=== PATIENT | male | born 1990 | race Caucasian/White ===

== ENCOUNTER 2017-09-12 19:21 | Emergency (ER) | payer OTHER ==
[~2017-09-12] VITALS: Ht 167.6 cm; Wt 71.0 kg
--- NOTE | 2017-09-12 19:28 | ED.ADGEN ---
Past History Past Medical History: Other Smoking: Cigarettes Drug Use: Cocaine, Marijuana Adult General Chief Complaint Chief Complaint ".. Its my day... I did go to work... I work out side all day.. did a little blow.. and started drinking.beer . whiskey .. and red bull... .. then I started feeling... a little bad.. and started vomiting.. I am still not right.. .. I got chest tightness ".. " I did not eat anything bad... didnt eat anything at all really..." HPI HPI Patient is a 27 year old male who presents with above hx and complaints nausea and vomiting after snorting 1/2 gram cocaine and multiple drinks of alcohol. Pt. localizes chest discomfort to Lt side of chest no radiation. Abd. pain in more epigastric. Chest and Abd. discomfort is described as moderate. Pt. in obvious sinus tachycardia on monitor 160- 170s. Pt. Serge trauma, travel, specific ill contacts, or bad food. Has had tachycardia and chest pain in past with smoking marijuana. Pt. denies black stools but has had hemorrhoids. Pt. states his vomit was very dark, a red color. Review of Systems Review of Systems Constitutional: Denies fever or chills [] Eyes: Denies change in visual acuity, redness, or eye pain [] HENT: Denies nasal congestion or sore throat [] Respiratory: Complaints of shortness of breath [] Cardiovascular: No additional information not addressed in HPI [] GI: Complaints of abdominal pain, nausea, vomiting, . Pt. denies bloody stools or diarrhea [] : Denies dysuria or hematuria [] Musculoskeletal: Denies back pain or joint pain [] Integument: Denies rash or skin lesions [] Neurologic: Denies headache, focal weakness or sensory changes [] Endocrine: Denies polyuria or polydipsia [] All other systems were reviewed and found to be within normal limits, except as documented in this note. Family History Family History Non-contributory Current Medications Current Medications Current Medications Medications (Trade) Dose Ordered Sig/Sanjuanita Start Time Stop Time Status Last Admin Dose Admin Folic Acid (FOLIC ACID SYRINGE for ER) 5 mg STK-MED ONCE 09/12/17 20:07 09/12/17 20:09 DC Lactated Ringer's 1,000 ml @ 500 mls/hr 1X ONCE 09/12/17 21:00 09/12/17 21:49 DC 09/12/17 21:05 500 MLS/HR Lorazepam (Ativan) 2 mg 1X ONCE 09/12/17 20:30 09/12/17 20:31 DC 09/12/17 20:03 2 MG Multivitamins/ Minerals 10 ml/ Folic Acid 1 mg/ Thiamine HCl 100 mg/Dextrose/ Lactated Ringer's 1,011.2 ml @ 1,000 mls/ hr 1X ONCE 09/12/17 20:00 09/12/17 21:00 DC 09/12/17 20:33 1,000 MLS/HR Ondansetron HCl (Zofran Odt) 8 mg 1X ONCE 09/12/17 20:30 09/12/17 20:31 DC 09/12/17 20:02 8 MG Pantoprazole Sodium (Protonix Vial) 40 mg 1X ONCE 09/12/17 20:30 09/12/17 20:31 DC 09/12/17 20:25 40 MG Thiamine HCl 200 mg STK-MED ONCE 09/12/17 20:07 09/12/17 20:08 DC Allergies Allergies Allergies Coded Allergies Type Severity Reaction Last Updated Verified No Known Drug Allergies 09/12/17 No NKDA Physical Exam Physical Exam Constitutional: Well developed, well nourished, Moderately acute distress, non- toxic appearance. [] HENT: Normocephalic, atraumatic, bilateral external ears normal, oropharynx dry , no oral exudates, nose normal. []Upper Lip scar. Eyes: PERRLA, EOMI, conjunctiva normal, no discharge. [] Neck: Normal range of motion, no tenderness, supple, no stridor. [] Cardiovascular: Tachycardia Heart rate regular rhythm, no murmur [] Lungs & Thorax: Bilateral breath sounds equal apex with scattered wheezes on auscultation [] Abdomen: Bowel sounds normal, soft, epigastric tenderness, no masses, no pulsatile masses. [] Rectal small hemorrhoid . No gross bleeding. Skin: Warm, dry, no erythema, no rash. [] Back: No tenderness, no CVA tenderness. [] Extremities: No tenderness, no cyanosis, no clubbing, ROM intact, no edema. [] Neurologic: Alert and oriented X 3, normal motor function, normal sensory function, no focal deficits noted. [] Psychologic: Affect anxious, judgement normal, mood normal. [] Current Patient Data Vital Signs Vital Signs Date Time Temp Pulse Resp B/P (MAP) Pulse Ox O2 Delivery O2 Flow Rate FiO2 09/12/17 21:31 101 12 112/67 (82) 99 Room Air 09/12/17 19:24 98.6 Lab Results Laboratory Tests Test 09/12/17 19:33 09/12/17 19:45 09/12/17 20:43 09/12/17 21:24 Stool Occult Blood Negative (NEG) White Blood Count 22.2 x10^3/uL (4.0-11.0) H Red Blood Count 5.70 x10^6/uL (4.30-5.70) Hemoglobin 16.4 g/dL (13.0-17.5) Hematocrit 47.5 % (39.0-53.0) Mean Corpuscular Volume 83 fL (79-100) Mean Corpuscular Hemoglobin 29 pg (25-35) Mean Corpuscular Hemoglobin Concent 35 g/dL (31-37) Red Cell Distribution Width 12.6 % (11.5-14.5) Platelet Count 251 x10^3/uL (140-400) Neutrophils (%) (Auto) 81 % (31-73) H Lymphocytes (%) (Auto) 14 % (24-48) L Monocytes (%) (Auto) 4 % (0-9) Eosinophils (%) (Auto) 1 % (0-3) Basophils (%) (Auto) 0 % (0-3) Neutrophils # (Auto) 18.1 x10^3uL (1.8-7.7) H Lymphocytes # (Auto) 3.0 x10^3/uL (1.0-4.8) Monocytes # (Auto) 0.8 x10^3/uL (0.0-1.1) Eosinophils # (Auto) 0.2 x10^3/uL (0.0-0.7) Basophils # (Auto) 0.1 x10^3/uL (0.0-0.2) Segmented Neutrophils % 81 % (35-66) H Band Neutrophils % 1 % (0-9) Lymphocytes % 13 % (24-48) L Atypical Lymphocytes % (Manual) 1 % (0-0) H Monocytes % 3 % (0-10) Eosinophils % 1 % (0-5) Platelet Estimate Adequate (ADEQUATE) Prothrombin Time 11.1 SEC (9.4-11.4) Prothrombin Time INR 1.1 (0.9-1.1) PTT 24 SEC (23-33) Sodium Level 141 mmol/L (136-145) Potassium Level 3.5 mmol/L (3.5-5.1) Chloride Level 102 mmol/L (98-107) Carbon Dioxide Level 28 mmol/L (21-32) Anion Gap 11 (6-14) Blood Urea Nitrogen 16 mg/dL (8-26) Creatinine 1.1 mg/dL (0.7-1.3) Estimated GFR (Cockcroft-Gault) 80.3 Glucose Level 118 mg/dL (70-99) H Calcium Level 8.9 mg/dL (8.5-10.1) Total Bilirubin 1.0 mg/dL (0.2-1.0) Direct Bilirubin 0.2 mg/dL (0.0-0.2) Aspartate Amino Transferase (AST) 25 U/L (15-37) Alanine Aminotransferase (ALT) 51 U/L (16-63) Alkaline Phosphatase 77 U/L (46-116) Creatine Kinase 129 U/L (39-308) Creatine Kinase MB (Mass) 0.7 ng/mL (0.0-3.6) Creatine Kinase MB Relative Index 0.5 % (0-4) Troponin I Quantitative < 0.017 ng/mL (0-0.055) Total Protein 7.9 g/dL (6.4-8.2) Albumin 4.2 g/dL (3.4-5.0) Amylase Level 33 U/L (25-115) Lipase 84 U/L (73-393) Ethyl Alcohol Level 191 mg/dL (0-10) H Urine Collection Type Unknown Urine Color Straw Urine Clarity Clear Urine pH 5.5 Urine Specific [place] <=1.005 Urine Protein Neg (NEG-TRACE) Urine Glucose (UA) Neg mg/dL (NEG) Urine Ketones (Stick) 15 mg/dL (NEG) Urine Blood Neg (NEG) Urine Nitrite Neg (NEG) Urine Bilirubin Neg (NEG) Urine Urobilinogen Dipstick 0.2 mg/dL (0.2 mg/dL) Urine Leukocyte Esterase Neg (NEG) Urine RBC 0 /HPF (0-2) Urine WBC 0 /HPF (0-4) Urine Squamous Epithelial Cells None /LPF Urine Bacteria 0 /HPF (0-FEW) Urine Opiates Screen Neg (NEG) Urine Methadone Screen Neg (NEG) Urine Barbiturates Neg (NEG) Urine Phencyclidine Screen Neg (NEG) Urine Amphetamine/Methamphetamine Neg (NEG) Urine Benzodiazepines Screen Neg (NEG) Urine Cocaine Screen Pos (NEG) Urine Cannabinoids Screen Neg (NEG) Urine Ethyl Alcohol Pos (NEG) POC Troponin I 0.00 ng/ml (<0.08) EKG EKG My interpretation of EKG shows a sinus tachycardia heart 149 bpm. There is a somewhat strain pattern with T-wave abnormality.[] Repeat EKG my interpretation shows sinus tachycardia 105 bpm. Some nonspecific contour abnormalities in anterior lateral leads. Radiology/Procedures Radiology/Procedures My interpretation of acute abdomen film shows no acute cardiopulmonary findings. There is no free air under the diaphragm. Nonspecific bowel gas pattern.[] Course & Med Decision Making Course & Med Decision Making Pertinent Labs and Imaging studies reviewed. (See chart for details). Patient requesting discharge home. Patient exhibits UCAR capacity. Aware of risks of missed dx. Pt. encourage to avoid further cocaine, tobacco and alcohol. Pt. encourage to follow up with primary. Consider out pt. stress testing and GI consult. To take Zantac 150 twice a day for gastritis. Zofran for nausea and vomiting. Return if any concerns. [] Final Impression Final Impression 1. Vomiting[] 2. Chest Pain 3. Abdomen Pain 4. Polysubstance Abuse and Tobacco Use 5. Dehydration 6. Gastritis 7. Leukocytosis Dragon Disclaimer Dragon Disclaimer This electronic medical record was generated, in whole or in part, using a voice recognition dictation system. MAURILIO ROJAS MD Sep 12, 2017 19:28
--- NOTE | 2017-09-12 19:44 | EKG ---
[address] [address] Test Date: 2017-09-12 Test Time: 19:37:58 Pat Name: DEVEN VALLE Department: Room: Gender: M Residential Field Manager: SHEILA : 1990 Requested By: MAURILIO ROJAS Order Number: [id number] Reading MD: Jordy Stern Measurements Intervals [place] Rate: 149 P: 35 MD: 132 QRS: 28 QRSD: 88 T: 94 QT: 256 QTc: 406 Interpretive Statements SINUS TACHYCARDIA T ABNORMALITY IN LATERAL LEADS ABNORMAL ECG RI6.01 No previous ECG available for comparison Electronically Signed On 09-14-2017 17:01:09 CDT by Jordy Stern
[2017-09-12] MEDS: ONDANSETRON ODT 4 MG TAB.RAPDIS PO ONE (20:02)
[2017-09-12] MEDS: LORazepam 2 MG/ML VIAL IV ONE (20:03)
[2017-09-12] MEDS: IV RINGERS SOLUTION,LACTATED 1,000 ML IV SCH (20:03)
[2017-09-12] MEDS ORDERED: FOLIC ACID 5 MG/ML SYRINGE for ER IV ONE (20:07)
[2017-09-12] MEDS ORDERED: THIAMINE 200 MG/2 ML VIAL. IV ONE (20:07)
[2017-09-12 20:12] LABS: BASO # 0.1 x10^3/uL (0.0-0.2); BASO % 0 % (0-3); EOS # 0.2 x10^3/uL (0.0-0.7); EOS % 1 % (0-3); HEMATOCRIT 47.5 % (39.0-53.0); HEMOGLOBIN 16.4 g/dL (13.0-17.5); LYMPH % 14 % (24-48); MEAN CORPUSCULAR HEMOGLOBIN 29 pg (25-35); MEAN CORPUSCULAR HGB CONC 35 g/dL (31-37); MEAN CORPUSCULAR VOLUME 83 fL (79-100); MONO # 0.8 x10^3/uL (0.0-1.1); MONO % 4 % (0-9); NEUT # 18.1 x10^3uL (1.8-7.7); NEUT % 81 % (31-73); PLATELET COUNT 251 x10^3/uL (140-400); RED CELL DISTRIBUTION WIDTH 12.6 % (11.5-14.5); WHITE BLOOD COUNT 22.2 x10^3/uL (4.0-11.0)
[2017-09-12] MEDS: PANTOPRAZOLE IV 40 MG VIAL. IVP ONE (20:25)
[2017-09-12 20:31] LABS: ALBUMIN 4.2 g/dL (3.4-5.0); CALCIUM 8.9 mg/dL (8.5-10.1); CREATININE 1.1 mg/dL (0.7-1.3); DIRECT BILIRUBIN 0.2 mg/dL (0.0-0.2); GFR 80.3; POTASSIUM 3.5 mmol/L (3.5-5.1); TOTAL PROTEIN 7.9 g/dL (6.4-8.2)
[2017-09-12] MEDS: MVI, ADULT NO.4 WITH VIT K 10 ML, FOLIC ACID 1 MG, THIAMINE 100 MG in IV DEXTROSE 5%-LA... IV ONE ×4 (20:33)
--- NOTE | 2017-09-12 20:36 | RAD ---
EXAM: Abdomen, 2 views. HISTORY: Pain. COMPARISON: None. FINDINGS: Frontal upright and supine views of the abdomen are obtained. There is a small of gas and stool within the proximal colon. No abnormally dilated air-filled loops of bowel are seen. There is no transition point to suggest obstruction. There is no free air. IMPRESSION: Nonobstructive bowel gas pattern. Electronically signed by: Rosa Elena Sue MD (09/12/2017 8:32 PM) [id number]
[2017-09-12 20:53] LABS: FECAL OB PT NEGATIVE (NEG)
--- NOTE | 2017-09-12 20:55 | RAD ---
EXAM: Chest, 2 views. HISTORY: Nausea and vomiting. COMPARISON: None. FINDINGS: Frontal and lateral views of the chest and frontal upright view of the abdomen are obtained. There is no infiltrate, pleural effusion or pneumothorax. The heart is normal in size. No abnormally dilated loop of bowel seen within the upper abdomen. There is no free air. IMPRESSION: No acute pulmonary finding. Electronically signed by: Rosa Elena Sue MD (09/12/2017 8:52 PM) [id number]
[2017-09-12 21:01] LABS: AMPHETAMINE/METHAMPHETAMINE NEG (NEG); BARBITURATES NEG (NEG); BENZODIAZEPINES NEG (NEG); CANNABINOIDS NEG (NEG); COCAINE POS (NEG); METHADONE NEG (NEG); OPIATES NEG (NEG); PHENCYCLIDINE NEG (NEG)
[2017-09-12] MEDS: IV RINGERS SOLUTION,LACTATED 1,000 ML IV ONE (21:05)
[2017-09-12 21:14] LABS: BACTERIA,URINE 0 /HPF (0-FEW); BILIRUBIN,URINE NEG (NEG); CLARITY,URINE CLEAR; COLOR,URINE STRAW; GLUCOSE,URINE NEG (NEG); NITRITE,URINE NEG (NEG); RBC,URINE 0 /HPF (0-2); UROBILINOGEN,URINE 0.2 mg/dL (0.2 mg/dL); WBC,URINE 0 /HPF (0-4)
[2017-09-12] MEDS ORDERED: RANI150T21 PO (21:17)
[2017-09-12] MEDS ORDERED: ONDA8TAB12 PO (21:18)
[2017-09-12 21:31] VITALS: BP 112/67
[2017-09-12 22:28] LABS: % BANDS 1 % (0-9); % EOS 1 % (0-5); % LYMPHS 13 % (24-48); % MONOS 3 % (0-10); % SEGS 81 % (35-66)
[2017-09-12 22:29] LABS: PLT ESTIMATE ADEQUATE (ADEQUATE)
[2017-09-12 22:31] LABS: % ATYL 1 % (0-0)
--- NOTE | 2017-09-13 02:44 | EKG ---
[address] [address] Test Date: 2017-09-12 Test Time: 21:19:35 Pat Name: DEVEN VALLE Department: Room: Gender: M Health Safety Engineer: SHEILA : 1990 Requested By: MAURILIO ROJAS Order Number: [id number] Reading MD: Jordy Stern Measurements Intervals [place] Rate: 105 P: 95 UT: 150 QRS: 42 QRSD: 92 T: 11 QT: 332 QTc: 443 Interpretive Statements SINUS TACHYCARDIA Electronically Signed On 09-14-2017 17:01:46 CDT by Jordy Stern
== END 2017-09-12 21:46 | disposition home or self-care (01) ==
LOC: ER 19:21
DX: R07.89 Other chest pain (principal); E86.0 Dehydration; K29.70 Gastritis, unspecified, without bleeding; D72.829 Elevated white blood cell count, unspecified; F19.10 Other psychoactive substance abuse, uncomplicated; F12.10 Cannabis abuse, uncomplicated; F14.10 Cocaine abuse, uncomplicated; F17.210 Nicotine dependence, cigarettes, uncomplicated
CPT/HCPCS: 36415; 71046; 74021; 80048; 80076; 80307; 81001; 82150; 82274; 82553; 83690; 84484; 85007; 85025; 85610; 85730; 86850; 86900; 86901; 93005; 96361; 96365; 96375; 99285; C9113; G0480; J2060; J7120; Q0162; G0479

== ENCOUNTER 2020-08-20 18:42 | Emergency (ER) | payer OTHER, BC ==
[~2020-08-20] VITALS: Ht 167.6 cm; Wt 71.0 kg
[~2020-08-20 18:42] MED LIST: ONDA8TAB12 PO; RANI-376 PO
[2020-08-20] MEDS ORDERED: IV RINGERS SOLUTION,LACTATED 1,000 ML IV SCH (18:45)
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
[2020-08-20 19:09] LABS: BASO # 0.1 x10^3/uL (0.0-0.2); BASO % 1 % (0-3); EOS # 0.1 x10^3/uL (0.0-0.7); EOS % 1 % (0-3); HEMATOCRIT 51.1 % (39.0-53.0); HEMOGLOBIN 17.5 g/dL (13.0-17.5); LYMPH # 1.7 x10^3/uL (1.0-4.8); LYMPH % 14 % (24-48); MEAN CORPUSCULAR HEMOGLOBIN 29 pg (25-35); MEAN CORPUSCULAR HGB CONC 34 g/dL (31-37); MEAN CORPUSCULAR VOLUME 85 fL (79-100); MONO # 0.4 x10^3/uL (0.0-1.1); MONO % 4 % (0-9); NEUT % 81 % (31-73); PLATELET COUNT 187 x10^3/uL (140-400); RED BLOOD COUNT 6.05 x10^6/uL (4.30-5.70); RED CELL DISTRIBUTION WIDTH 13.1 % (11.5-14.5); WHITE BLOOD COUNT 12.3 x10^3/uL (4.0-11.0)
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
[2020-08-20 19:19] LABS: CALCIUM 9.8 mg/dL (8.5-10.1); CREATININE 1.1 mg/dL (0.7-1.3); GFR 79.1; POTASSIUM 3.7 mmol/L (3.5-5.1)
[2020-08-20 19:34] LABS: ALBUMIN 4.8 g/dL (3.4-5.0); DIRECT BILIRUBIN 0.1 mg/dL (0.0-0.2); MAGNESIUM 1.7 mg/dL (1.8-2.4); TOTAL BILIRUBIN 0.7 mg/dL (0.2-1.0); TOTAL PROTEIN 8.1 g/dL (6.4-8.2)
[2020-08-20] MEDS ORDERED: MAGNESIUM HYDROXIDE 2,400 MG/30 ML ORAL.SUSP. PO ONE (20:00)
[2020-08-20 20:08] LABS: AMPHETAMINE/METHAMPHETAMINE NEG (NEG); BARBITURATES NEG (NEG); BENZODIAZEPINES POS (NEG); CANNABINOIDS POS (NEG); COCAINE NEG (NEG); METHADONE NEG (NEG); OPIATES NEG (NEG); PHENCYCLIDINE NEG (NEG)
[2020-08-20 20:15] LABS: BILIRUBIN,URINE SMALL (NEG); CLARITY,URINE CLEAR; COLOR,URINE AMBER; GLUCOSE,URINE NEG (NEG); NITRITE,URINE POS (NEG); UROBILINOGEN,URINE 0.2 mg/dL (0.2 mg/dL)
[2020-08-20 20:16] LABS: BACTERIA,URINE 0 /HPF (0-FEW); RBC,URINE 0 /HPF (0-2); WBC,URINE 0 /HPF (0-4)
[2020-08-20 20:26] VITALS: BP 122/78
--- NOTE | 2020-08-21 06:39 | EKG ---
[address] [address] Test Date: 2020-08-20 Test Time: 19:59:15 Pat Name: DEVEN VALLE Department: Room: Gender: M Dictaphone Typist: : 1990 Requested By: MAURILIO ROJAS Order Number: [id number] Reading MD: Measurements Intervals [place] Rate: 99 P: 56 MS: 142 QRS: 18 QRSD: 86 T: 24 QT: 324 QTc: 421 Interpretive Statements SINUS RHYTHM OTHERWISE NORMAL ECG RI6.02 No previous ECG available for comparison
--- NOTE | 2020-08-21 06:50 | EKG ---
[address] [address] Test Date: 2020-08-20 Test Time: 18:45:14 Pat Name: DEVEN VALLE Department: Room: Gender: M Sales And Service Agent: : 1990 Requested By: MAURILIO ROJAS Order Number: [id number] Reading MD: Measurements Intervals [place] Rate: 143 P: ID: QRS: 21 QRSD: 86 T: 62 QT: 320 QTc: 500 Interpretive Statements SUPRAVENTRICULAR TACHYCARDIA NO SPECIFIC ECG ABNORMALITIES RI6.02 No previous ECG available for comparison
== END 2020-08-20 20:27 | disposition home or self-care (01) ==
LOC: ER 18:42
DX: S50.02XA Contusion of left elbow, initial encounter (principal); F17.210 Nicotine dependence, cigarettes, uncomplicated; F10.20 Alcohol dependence, uncomplicated; Y90.0 Blood alcohol level of less than 20 mg/100 ml; V69.69XA Unspecified occupant of heavy transport vehicle injured in collision with other motor vehicles in traffic accident, initial encounter; Y93.89 Activity, other specified; Y92.89 Other specified places as the place of occurrence of the external cause; Y99.8 Other external cause status
CPT/HCPCS: 36415; 71045; 80048; 80076; 80307; 81001; 82550; 83690; 83735; 83880; 84443; 84484; 85025; 87086; 93005; 96360; 96361; 99285; G0480; J7120